=== PATIENT | female | born 1965 | race Caucasian/White ===

== ENCOUNTER 2017-02-10 09:54 | Observation (INO) | payer BC ==
[2017-02-10] MEDS ORDERED: HYDROmorphone HCL 1 MG/ML DISP.SYRIN IM ONE (11:08)
[2017-02-10] MEDS ORDERED: HYDROmorphone HCL 1 MG/ML DISP.SYRIN IV ONE (11:10)
[2017-02-10] MEDS ORDERED: HYDROmorphone HCL 1 MG/ML DISP.SYRIN ONE (11:12)
[2017-02-10 11:19] LABS: Hematocrit 40.4 % (37.0-47.0); Hemoglobin 11.9 gm/dL (12.5-16.0); Mean Cell Volume 78.4 fl (78-100); Mean Corpuscular Hemoglobin 23.1 pg (27-31); Mean Corpuscular Hgb Conc 29.5 g/dl (32-36); Mean Platelet Volume 10.3 fl (6.0-9.5); Neutrophil # 9.6 K/mm3 (1.3-6.0); Neutrophil % 84.8 % (42-75.0); Platelet Count 270 K/mm3 (150-450); Red Blood Count 5.15 M/mm3 (4.2-5.4); Red Cell Distribution Width 17.5 % (11.5-14.0); White Blood Count 11.3 K/mm3 (4.0-10.5)
[2017-02-10 11:36] LABS: ALT 26 U/L (19-67); AST 19 U/L (0-48); Albumin * 3.5 gm/dl (3.4-5.0); Alkaline Phosphatase * 99 U/L (50-170); Anion Gap 13.4 mmol/L (6.8-13.8); BUN/Creatinine Ratio 18.3 (9.0-21.6); Bilirubin, Total 0.3 mg/dL (0.0-1.1); Blood Urea Nitrogen 23 mg/dL (3-23); Ca. Corrected For Albumin 9.5 mg/dL (8.4-10.2); Calcium * 9.4 mg/dL (7.9-10.9); Carbon Dioxide 28.6 mmol/L (24-32.6); Chloride 106 mmol/L (97-106); Glucose * 113 mg/dL (70-110); Sodium 144 mmol/L (132-142); Troponin I Less than 0.017 ng/ml (0.00-0.10)
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
[2017-02-10] MEDS ORDERED: NORMAL SALINE 1,000 ML IV ONE ×2 (11:50→13:26)
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
[2017-02-10] MEDS ORDERED: traMADol HCL 50 MG TABLET PO PRN ×2 (16:56→17:24)
[2017-02-10] MEDS ORDERED: ACETAMINOPHEN 500 MG TABLET PO PRN (16:57)
[2017-02-10] MEDS ORDERED: CYCLOBENZAPRINE HCL 10 MG TABLET PO PRN (16:59)
[2017-02-10] MEDS ORDERED: IBUPROFEN 800 MG TABLET PO PRN (16:59)
[2017-02-10] MEDS: BUDESONIDE 0.5 MG/2 ML VIAL.NEB IH SCH (18:10)
[2017-02-10 18:17] LABS: Cocaine Ur Negative (NEGATIVE); Urine Barbiturate Negative (NEGATIVE); Urine Benzodiazepines Negative (NEGATIVE); Urine Opiates Negative (NEGATIVE); Urine PCP Negative (NEGATIVE); Urine THC Negative (NEGATIVE)
[2017-02-10 19:17] LABS: Urine Bilirubin Negative (NEGATIVE); Urine Blood Negative /ul (NEGATIVE); Urine Ketone Negative (NEGATIVE); Urine Nitrite Negative (NEGATIVE); Urine Protein Negative (NEGATIVE); Urine Specific Gravity 1.015 SP.GR. (1.005-1.010); Urine Urobilinogen Normal (NORMAL); Urine pH 6.5 pH (5.0-7.0)
[2017-02-10 19:29] LABS: Urine Appearance Slightly Cloudy; Urine Color Yellow
[2017-02-10 19:30] LABS: Urine Bacteria 3+; Urine RBC None Seen /hpf (0-5); Urine WBC 0-5 /hpf (0-5)
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
[2017-02-11 05:38] LABS: Hematocrit 33.5 % (37.0-47.0); Hemoglobin 9.9 gm/dL (12.5-16.0); Mean Cell Volume 78.5 fl (78-100); Mean Corpuscular Hemoglobin 23.2 pg (27-31); Mean Corpuscular Hgb Conc 29.6 g/dl (32-36); Mean Platelet Volume 10.1 fl (6.0-9.5); Neutrophil % 75.1 % (42-75.0); Platelet Count 219 K/mm3 (150-450); Red Blood Count 4.27 M/mm3 (4.2-5.4); Red Cell Distribution Width 17.2 % (11.5-14.0); White Blood Count 6.7 K/mm3 (4.0-10.5)
[2017-02-11 05:46] LABS: Anion Gap 10.9 mmol/L (6.8-13.8); BUN/Creatinine Ratio 14.9 (9.0-21.6); Carbon Dioxide 28.4 mmol/L (24-32.6); Estimated Creat Clear 51.5; Potassium 4.3 mmol/L (3.4-4.6)
[2017-02-11] MEDS: BUDESONIDE 0.5 MG/2 ML VIAL.NEB IH SCH (06:04)
[2017-02-11 06:57] VITALS: BP 119/74
[2017-02-11] MEDS ORDERED: PANTOPRAZOLE SODIUM 20 MG TABLET.DR PO SCH (07:00)
[2017-02-11] MEDS ORDERED: LORATADINE 10 MG TABLET PO SCH (09:00)
[2017-02-11] MEDS ORDERED: SERTRALINE HCL 100 MG TABLET PO SCH (09:00)
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
--- NOTE | 2017-02-11 10:39 | PN ---
Subjective - Date and Time Seen Date: 02/11/17 Time: 10:36 Subjective Narrative: Pt is feeling better and breathing easier. Has more mobility of her shoulder girdle. Objective - Review of Systems Generalized/Overall Review: Reports: No Symptoms Reported EENTM: Reports: No Symptoms Reported Respiratory: Reports: No Symptoms Reported Cardiac: Reports: No Symptoms Reported Abdominal: Reports: No Symptoms Reported Genitourinary Symptoms: Reports: No Symptoms Reported Musculoskeletal Complaints: Reports: Other - RUE ROM still sore but improved Neurological: Reports: No Symptoms Reported Skin: Reports: No Symptoms Reported Endocrine: Reports: No Symptoms Reported Misc: All systems neg except as marked - Vitals Vitals: Last Vital Signs Temp 36.7 C 02/11/17 09:54 Pulse 81 02/11/17 09:54 Resp 18 02/11/17 09:54 BP 119/74 02/11/17 09:54 Pulse Ox 95 02/11/17 09:54 - Abnormal Lab Findings Abnormal Lab Findings: Abnormal Lab Results 02/10/17 02/11/17 02/11/17 Range/Units 17:56 05:30 05:30 Hgb 9.9 L (12.5-16.0) gm/dL Hct 33.5 L (37.0-47.0) % MCH 23.2 L (27-31) pg MCHC 29.6 L (32-36) g/dl RDW 17.2 H (11.5-14.0) % MPV 10.1 H (6.0-9.5) fl Neutrophils % 75.1 H (42-75.0) % Lymphocytes % 13.4 L (20-51) % Eosinophils % 4.9 H (0.0-3.0) % Lymphocytes # 0.9 L (1.5-3.5) k/mm3 Est GFR (Non-Af Amer) 54 L (60-130) mL/min Ur Epithelial Cells >25 H (0-5) /hpf Urine Bacteria 3+ H (NONE) - EKG/Xray Findings XRAY: chest Interpretation: Reviewed by me - Exam Constitutional: Present: Alert, Oriented x3, Cooperative, No distress ENT Exam: Present: normal ENT inspection Neck: Present: normal inspection Respiratory: Present: no respiratory distress, no accessory muscle use Extremity: Present: normal range of motion Neurologic: Present: no motor/sensory deficits Assessment/Plan Plan Narrative: Agree with discharge. Home pulm. toilette and smoking cessation. CXR blossoming lung contusion in the interval. Should be OK. - Problems/Diagnosis (1) Contusion of right chest wall Problem: Acute Qualifiers: Encounter type: initial encounter Qualified Code(s): S20.211A - Contusion of right front wall of thorax, initial encounter (2) Pleural effusion on right Problem: Acute (3) Hypoxemia requiring supplemental oxygen Problem: Resolved (4) Tobacco abuse Problem: Chronic (5) Contusion of shoulder, right Problem: Acute Qualifiers: Encounter type: initial encounter Qualified Code(s): S40.011A - Contusion of right shoulder, initial encounter (6) Contusion of thigh, right Problem: Acute Qualifiers: Encounter type: initial encounter Qualified Code(s): S70.11XA - Contusion of right thigh, initial encounter (7) Contusion of hand, right Problem: Acute Qualifiers: Encounter type: initial encounter Qualified Code(s): S60.221A - Contusion of right hand, initial encounter
== END 2017-02-11 12:45 | disposition home or self-care (01) ==
LOC: ER 09:54 → MS 13:46
PROVIDERS: ADMIT Internal Medicine; ATTEND Internal Medicine
PROC: 4A033R1 Measurement of Arterial Saturation, Peripheral, Percutaneous Approach (ICD-10-PCS; principal; 2017-02-10)
DX: S27.329A Contusion of lung, unspecified, initial encounter (principal); S20.211A Contusion of right front wall of thorax, initial encounter; J90 Pleural effusion, not elsewhere classified; Z72.0 Tobacco use; R09.02 Hypoxemia; S60.221A Contusion of right hand, initial encounter; S40.011A Contusion of right shoulder, initial encounter; S70.11XA Contusion of right thigh, initial encounter
CPT/HCPCS: 36415; 36600; 71020; 71260; 72125; 80048; 80053; 80307; 81001; 82803; 83605; 84484; 85025; 93005; 94640; 96374; 99284; G0378; G0481